=== PATIENT | male | born 1975 | race Two or more races ===

== ENCOUNTER 2019-09-13 21:33 | Emergency (ER) | payer BC ==
[~2019-09-13] VITALS: Ht 170.2 cm; Wt 75.8 kg
[2019-09-13 21:45] VITALS: BP 138/95
--- NOTE | 2019-09-13 21:54 | PHYS DOC ---
General Adult HPI: HPI: ".. 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 " Patient is a 44 year old male who presents with above hx and complaints of getting some metal fragment that got stuck in his cornea Rt. eye. Patient does have a small metal fragment stuck in the central area of right central cornea and surrounding rust ring. No obvious cell or flare but does have pain with direct/consensual photophobia. Patient denies any significant visual changes but complains of marked pain and discomfort in right eye. Patient states his tetanus is up-to-date. No recent travel outside the [facility]. No history immunosuppression. Review of Systems: Review of Systems: Constitutional: Denies fever or chills Eyes: Complains of right eye pain from metal foreign body HENT: Denies nasal congestion or sore throat Respiratory: Denies cough or shortness of breath Cardiovascular: Denies chest pain or edema GI: Denies abdominal pain, nausea, vomiting, bloody stools or diarrhea : Denies dysuria Musculoskeletal: Denies back pain or joint pain Integument: Denies rash Neurologic: Denies headache, focal weakness or sensory changes Endocrine: Denies polyuria or polydipsia Lymphatic: Denies swollen glands Psychiatric: Denies depression or anxiety Heart Score: Risk Factors: Risk Factors: DM, Current or recent (<one month) smoker, HTN, HLP, family history of CAD, obesity. Risk Scores: Score 0 - 3: 2.5% MACE over next 6 weeks - Discharge Home Score 4 - 6: 20.3% MACE over next 6 weeks - Admit for Clinical Observation Score 7 - 10: 72.7% MACE over next 6 weeks - Early Invasive Strategies Family History: Family History: Noncontributory Current Medications: Current Meds: See nursing for home meds Allergies: Allergies: No known drug allergies Physical Exam: PE: Constitutional: Well developed, well nourished, moderate acute distress, non- toxic appearance. [] HENT: Normocephalic, atraumatic, bilateral external ears normal, oropharynx moist, no oral exudates, nose normal. [] Eyes: PERRLA, EOMI, conjunctiva normal, no discharge. [] Lid showed no injury. Cornea has a small embedded metal fragment with surrounding rust stain. Neck: Normal range of motion, no tenderness, supple, no stridor. [] Cardiovascular:Heart rate regular rhythm, no murmur [] Lungs & Thorax: Bilateral breath sounds equal at apex on auscultation [] Abdomen: Bowel sounds normal, soft, no tenderness, no masses, no pulsatile masses. [] Skin: Warm, dry, no erythema, no rash. [] Back: No tenderness, no CVA tenderness. [] Extremities: No tenderness, no cyanosis, no clubbing, ROM intact, no edema. [] Neurologic: Alert and oriented X 3, normal motor function, normal sensory function, no focal deficits noted. [] Psychologic: Affect anxious, judgement normal, mood normal. [] EKG: EKG: [] Radiology/Procedures: Radiology/Procedures: [] Course & Med Decision Making: Course & Med Decision Making Pertinent Labs and Imaging studies reviewed. (See chart for details) Procedure note- Use of tetracaine in right eye for visual acuity (see nursing notes). Use fluo. stip. No obvious penetration. No obvious cell or flare. Thin with use of split lamp. And a 22-gauge needle removed metal fragment. Mild blurring to remove most of the rust ring. I irrigated with normal saline. No additional foreign bodies noted on exam and in version of lid. The patient then received Polysporin, Cyclogyl, and Toradol drops. Patient use Polysporin 4 times a day to the right eye. Patient to call his research assistant or and Dr. Krishnamurthy office for a follow-up in the morning. Patient also follow-up with work comp. Take Tylenol and ibuprofen as needed for pain discomfort. May use the Toradol drops up to 4 times a day for discomfort. Patient return if any increased redness, pain, or decreased vision immediately. Pt.to use small amount of polysporin in Rt.eye 4 x day. Yessy follow up [phone].. Follow up work comp. [] Chapo Disclaimer: Chapo Disclaimer: This electronic medical record was generated, in whole or in part, using a voice recognition dictation system. Departure Departure: Disposition: 01 HOME/RESIDENCE PRIOR TO ADM Condition: STABLE Referrals: PCP,KARISHMA (PCP) Chapo Disclaimer This chart was dictated in whole or in part using Voice Recognition software in a busy, high-work load, and often noisy Emergency Department environment. It may contain unintended and wholly unrecognized errors or omissions. Dragon Disclaimer This chart was dictated in whole or in part using Voice Recognition software in a busy, high-work load, and often noisy Emergency Department environment. It may contain unintended and wholly unrecognized errors or omissions. KACEY PRINCE MD September 13, 2019 21:53
[2019-09-13] MEDS ORDERED: TETRACAINE 0.5% OPHTH SOLUTION 4ML BOTTLE. OD ONE (23:00)
[2019-09-13] MEDS ORDERED: FLUORESCEIN 1MG EYE STRIP. OD ONE (23:00)
[2019-09-13] MEDS ORDERED: CYCLOPENTOLATE 1% OPTH SOLUTION 2ML BOTTLE. OD ONE (23:45)
[2019-09-13] MEDS ORDERED: BACITRACIN/POLYMYXIN B OPHTH OINTMENT 3.5GM TUBE. OU ONE (23:45)
[2019-09-13] MEDS ORDERED: cycloSPORINE 0.05% OPTH 1 DROP DROPERETTE OD ONE (23:45)
[2019-09-13] MEDS ORDERED: KETOROLAC TROMETHAMINE 0.5% OPHTH SOLUTION BOTTLE. OD ONE (23:45)
== END 2019-09-14 | disposition home or self-care (01) ==
LOC: ER 21:33
DX: T15.01XA Foreign body in cornea, right eye, initial encounter (principal); W45.8XXA Other foreign body or object entering through skin, initial encounter; Y93.89 Activity, other specified; Y92.89 Other specified places as the place of occurrence of the external cause; Y99.8 Other external cause status
CPT/HCPCS: 65222; 99284